=== PATIENT | female | born 1990 | race Caucasian/White ===

== ENCOUNTER 2019-06-07 05:26 | Inpatient (IN) | payer OTHER ==
[2019-06-07] MEDS: ONDANSETRON (ODT) 4 MG TAB ODT ×2 (06:14→06:55)
[2019-06-07] MEDS: HYDROCODONE/APAP (5/325) TAB PO (06:15)
[2019-06-07 06:27] LABS: ADD MAN DIFF? NO
[2019-06-07 06:29] LABS: BASOPHIL # 0.1 10^3/ul (0.0-0.1); BASOPHILS % 0.5 % (0.0-2.0); EOSINOPHILS # 0.1 10^3/ul (0.0-0.5); EOSINOPHILS % 0.4 % (0.0-7.0); HEMOGLOBIN 13.4 g/dl (12.0-16.0); LYMPHOCYTES # 1.8 10^3/ul (0.8-2.9); LYMPHOCYTES % 15.3 % (15.0-51.0); MEAN CORPUSCULAR HEMOGLOBIN 31.5 pg (29.0-33.0); MEAN CORPUSCULAR HGB CONC 36.2 g/dl (32.0-37.0); MEAN CORPUSCULAR VOLUME 87.1 fl (82.0-101.0); MEAN PLATELET VOLUME 10.8 fl (7.4-10.4); MONOCYTE # 0.4 10^3/ul (0.3-0.9); MONOCYTES % 3.3 % (0.0-11.0); NEUTROPHIL # 9.3 10^3/ul (1.6-7.5); PLATELET COUNT 353 10^3/UL (140-415); RED BLOOD COUNT 4.25 10^6/ul (4.20-5.40); RED CELL DISTRIBUTION WIDTH 12.9 % (11.5-14.5)
[2019-06-07 06:29] LABS: WHITE BLOOD COUNT 11.6 10^3/ul (4.8-10.8)
[2019-06-07 06:33] LABS: ADD UMIC YES; UR ASCORBIC ACID NEGATIVE (NEGATIVE); UR BILIRUBIN (Dip) NEGATIVE (NEGATIVE); UR BLOOD (Dip) 3+ mg/dL (NEGATIVE); UR CLARITY SLIGHTLY CLOUDY (CLEAR); UR COLOR YELLOW (YELLOW); UR GLUCOSE (Dip) 3+ mg/dL (NEGATIVE); UR KETONES (Dip) NEGATIVE (NEGATIVE); UR LEUKOCYTE ESTERASE (Dip) NEGATIVE Leu/ul (NEGATIVE); UR MUCUS FEW /HPF (NONE SEEN); UR NITRITE (Dip) NEGATIVE (NEGATIVE); UR RBC 57 /HPF (0-5); UR SPECIFIC GRAVITY (Dip) 1.036 (1.003-1.030); UR SQUAMOUS EPITHELIAL CELL FEW /HPF (FEW); UR TOTAL PROTEIN (Dip) 3+ mg/dl (NEGATIVE); UR UROBILINOGEN (Dip) NEGATIVE (NEGATIVE); UR WBC 2 /HPF (0-5)
[2019-06-07] MEDS: ONDANSETRON 4 MG INJ IV (06:50)
[2019-06-07] MEDS: KETOROLAC 30 MG INJ IV (06:51)
[2019-06-07] MEDS: SOD CHLORIDE 0.9% 1,000 ML IV (06:51)
[2019-06-07 06:52] LABS: ALANINE AMINOTRANSFERASE 52 IU/L (13-69); ALBUMIN 3.4 g/dl (3.3-4.9); ALBUMIN/GLOBULIN RATIO 0.89; ALKALINE PHOSPHATASE 113 IU/L (42-121); ANION GAP 13 (5-13); ASPARTATE AMINO TRANSFERASE 42 IU/L (15-46); BILIRUBIN,INDIRECT 0.2 mg/dl (0-1.1); BILIRUBIN,TOTAL 0.2 mg/dl (0.2-1.3); BLOOD UREA NITROGEN 11 mg/dl (7-20); CALCIUM 8.5 mg/dl (8.4-10.2); CARBON DIOXIDE 18 mmol/L (21-31); CHLORIDE 103 mmol/L (97-110); CREATININE 0.27 mg/dl (0.44-1.00); Estimated GFR > 60 mL/min (>60); GLUCOSE 286 mg/dl (70-220); LIPASE 1858 U/L (23-300); POTASSIUM 4.3 mmol/L (3.5-5.1); SODIUM 134 mmol/L (135-144); TOTAL PROTEIN 7.2 g/dl (6.1-8.1)
[2019-06-07] MEDS: HYDROmorphONE 0.5 MG/0.5 ML SYG IV (07:08)
[2019-06-07 07:48] LABS: UR KETONES (Dip) NEGATIVE (NEGATIVE)
[2019-06-07] MEDS ORDERED: ACETAMINOPHEN 325 MG TAB PO (08:00)
[2019-06-07] MEDS ORDERED: ONDANSETRON 4 MG INJ IV ×2 (08:00→09:30)
[2019-06-07 08:49] LABS: TRIGLYCERIDES > 1575 mg/dl (0-149)
[2019-06-07] MEDS: DEXTROSE 5%-0.45% NACL 1,000 ML IV ×2 (09:28→20:13)
[2019-06-07] MEDS ORDERED: DEXTROSE 50% 50 ML SYRINGE IV ×2 (12:30)
[2019-06-07] MEDS ORDERED: GLUCOSE GEL 15 GRAM TUBE BUCCAL (12:30)
[2019-06-07] MEDS ORDERED: GLUCAGON 1 MG INJ IM (12:30)
[2019-06-07] MEDS ORDERED: GLUCOSE GEL 15 GRAM TUBE PO ×2 (12:30)
[2019-06-07] MEDS: morphine 2 MG INJ IV ×3 (13:00→21:37)
[2019-06-07] MEDS: INSULIN ASPART [NOVOLOG] 3 ML PEN SC ×3 (13:08→20:19)
[2019-06-08] MEDS: INSULIN ASPART [NOVOLOG] 3 ML PEN SC ×6 (01:17→21:00)
[2019-06-08] MEDS: DEXTROSE 5%-0.45% NACL 1,000 ML IV (06:12)
[2019-06-08 06:39] LABS: LIPASE 1448 U/L (23-300)
[2019-06-08 07:42] LABS: CHOL/HDL RATIO 8.6 RATIO; HDL CHOLESTEROL 28 mg/dl (34-82)
[2019-06-08 07:42] LABS: CHOLESTEROL 242 mg/dl (100-200)
[2019-06-08 09:20] LABS: TRIGLYCERIDES 1485 mg/dl (0-149)
[2019-06-08] MEDS: SOD CHLORIDE 0.9% 1,000 ML IV (17:03)
[2019-06-08] MEDS ORDERED: INSULIN GLARGINE [LANTus] (100 UNITS/ML) SYG SC (20:00)
[2019-06-08] MEDS: INSULIN GLARGINE [LANTus] (100 UNITS/ML) SYG SC (21:04)
[2019-06-09] MEDS: INSULIN ASPART [NOVOLOG] 3 ML PEN SC ×4 (01:46→12:10)
[2019-06-09] MEDS: SOD CHLORIDE 0.9% 1,000 ML IV ×3 (01:48→09:42)
[2019-06-09 05:49] LABS: ADD MAN DIFF? NO
[2019-06-09 06:06] LABS: BASOPHIL # 0.1 10^3/ul (0.0-0.1); BASOPHILS % 0.7 % (0.0-2.0); EOSINOPHILS # 0.4 10^3/ul (0.0-0.5); EOSINOPHILS % 6.1 % (0.0-7.0); HEMATOCRIT 34.3 % (37.0-47.0); HEMOGLOBIN 11.5 g/dl (12.0-16.0); LYMPHOCYTES # 2.7 10^3/ul (0.8-2.9); LYMPHOCYTES % 39.5 % (15.0-51.0); MEAN CORPUSCULAR HEMOGLOBIN 29.9 pg (29.0-33.0); MEAN CORPUSCULAR HGB CONC 33.5 g/dl (32.0-37.0); MEAN CORPUSCULAR VOLUME 89.1 fl (82.0-101.0); MEAN PLATELET VOLUME 10.7 fl (7.4-10.4); MONOCYTE # 0.4 10^3/ul (0.3-0.9); MONOCYTES % 5.2 % (0.0-11.0); NEUTROPHIL # 3.4 10^3/ul (1.6-7.5); NEUTROPHILS % 48.4 % (39.0-77.0); PLATELET COUNT 312 10^3/UL (140-415); RED BLOOD COUNT 3.85 10^6/ul (4.20-5.40); RED CELL DISTRIBUTION WIDTH 13.3 % (11.5-14.5)
[2019-06-09 06:06] LABS: WHITE BLOOD COUNT 6.9 10^3/ul (4.8-10.8)
[2019-06-09 06:12] LABS: HEMOGLOBIN A1C 10.3 % (0-5.9)
[2019-06-09 06:18] LABS: MAGNESIUM 1.6 mg/dl (1.7-2.5)
[2019-06-09 06:18] LABS: PHOSPHORUS 3.8 mg/dl (2.5-4.9)
[2019-06-09 06:28] LABS: ALANINE AMINOTRANSFERASE 68 IU/L (13-69); ALBUMIN 2.9 g/dl (3.3-4.9); ALKALINE PHOSPHATASE 78 IU/L (42-121); AMYLASE 93 U/L (11-123); ANION GAP 7 (5-13); ASPARTATE AMINO TRANSFERASE 65 IU/L (15-46); BILIRUBIN,INDIRECT 0.5 mg/dl (0-1.1); BILIRUBIN,TOTAL 0.5 mg/dl (0.2-1.3); BLOOD UREA NITROGEN 4 mg/dl (7-20); CALCIUM 8.2 mg/dl (8.4-10.2); CARBON DIOXIDE 23 mmol/L (21-31); CHLORIDE 108 mmol/L (97-110); CREATININE 0.31 mg/dl (0.44-1.00); Estimated GFR > 60 mL/min (>60); GLUCOSE 171 mg/dl (70-220); LIPASE 271 U/L (23-300); POTASSIUM 3.6 mmol/L (3.5-5.1); SODIUM 138 mmol/L (135-144); TOTAL PROTEIN 6.1 g/dl (6.1-8.1)
[2019-06-09] MEDS: FENOFIBRATE 145 MG TAB PO (10:25)
[2019-06-09] MEDS: MAGNESIUM SULFATE 2 GM/50 ML 50 ML IVPB (10:25)
[2019-06-09] MEDS ORDERED: INSULIN GLARGINE [LANTus] (100 UNITS/ML) SYG SC (20:00)
== END 2019-06-09 17:13 | disposition home or self-care (01) | DRG 642 ==
LOC: PP2 08:53 → FTE 05:26 → PP2 08:00
DX: E78.1 Pure hyperglyceridemia (principal); K85.90 Acute pancreatitis without necrosis or infection, unspecified; E11.9 Type 2 diabetes mellitus without complications; E66.9 Obesity, unspecified; Z68.35 Body mass index [BMI] 35.0-35.9, adult; Z79.4 Long term (current) use of insulin
CPT/HCPCS: 36415; 76705; 80053; 80061; 81001; 81005; 81025; 82150; 82962; 83036; 83690; 83735; 84100; 84478; 85025; 96374; 96375; 96376; 99285-25